=== PATIENT | male | born 1950 | race Caucasian/White ===

== ENCOUNTER → 2017-06-25 | Outpatient (CLI) | payer MEDICARE ==
[2017-06-25 12:23] LABS: Basophils % (A) 0 %; Eosinophils # (A) 0.2 k/uL (0-0.7); Eosinophils % (A) 3 %; HCT 44.4 % (39.0-53.0); HGB 14.8 gm/dL (13.0-17.5); Lymphocytes # (A) 1.8 k/uL (1.0-4.8); Lymphocytes % (A) 37 %; MCH 30.5 pg (25.0-35.0); MCHC 33.4 g/dL (31.0-37.0); MCV 91.3 fL (80.0-100.0); Mean Platelet Volume 6.4; Monocytes # (A) 0.4 k/uL (0-1.0); Monocytes % (A) 8 %; Neutrophils # (A) 2.4 k/uL (1.3-7.7); Neutrophils % (A) 49 %; Platelet Count 310 k/uL (150-450); RBC 4.86 m/uL (4.30-5.90); RDW 12.3 % (11.5-15.5); WBC 4.9 k/uL (3.8-10.6)
[2017-06-25 13:08] LABS: Prostate Specific Antigen 0.56 ng/mL (0.00-4.00)
== END | disposition home or self-care (01) ==
LOC: LABWHC1 11:58
PROVIDERS: ATTEND Physician Assistant Medical
DX: I25.10 Atherosclerotic heart disease of native coronary artery without angina pectoris (principal); Z12.5 Encounter for screening for malignant neoplasm of prostate
CPT/HCPCS: 36415; 80061; 82247; 83036; 84153; 84443; 84450; 84460; 85025

== ENCOUNTER 2020-01-22 17:16 | Emergency (ER) | payer MEDICARE ==
[2020-01-22 17:41] VITALS: BP 162/87; PULSE 67; RESP 18; TEMP 98.9
[2020-01-22] MEDS ORDERED: DIPH,PERTUS(ACELL)TETVAC-LF 0.5 ML VIAL IM ONE (17:49)
[2020-01-22] MEDS ORDERED: LIDOCAINE 1% INJ 10MG/ML (20 ML MDV) SQ STA (17:49)
--- NOTE | 2020-01-22 17:55 | ED ---
General Adult HPI - General Chief complaint: Wound/Laceration Stated complaint: Finger lac Time Seen by Provider: 01/22/20 17:42 Source: patient, RN notes reviewed Mode of arrival: ambulatory Limitations: no limitations - History of Present Illness Initial comments: 69-year-old male presents to the emergency room for a chief complaint of laceration. Patient reports that he was working and distraught when against a sharp object and cut his finger. Patient reports that i he believes are is requiring sutures. Patient is not up-to-date on tetanus. Patient denies any weakness in the finger. Denies sensation of foreign bodies.Patient has no other complaints at this time including shortness of breath, chest pain, abdominal pain, nausea or vomiting, headache, or visual changes. - Related Data Previous Rx's Medication Instructions Recorded Aspirin 325 mg PO DAILY tab 12/12/14 Clopidogrel [Plavix] 75 mg PO DAILY #30 tab 12/12/14 Metoprolol Tartrate [Lopressor] 25 mg PO DAILY #30 tab 12/12/14 Nitroglycerin Sl Tabs [Nitrostat] 0.4 mg SUBLINGUAL Q5M PRN #100 tab 12/12/14 Cephalexin [Keflex] 500 mg PO TID 5 Days #15 cap 01/22/20 Allergies Allergy/AdvReac Type Severity Reaction Status Date / Time No Known Allergies Allergy Verified 01/22/20 17:40 Review of Systems ROS Statement: Those systems with pertinent positive or pertinent negative responses have been documented in the HPI. ROS Other: All systems not noted in ROS Statement are negative. Past Medical History Past Medical History: No Reported History, Myocardial Infarction ([place]) Additional Past Medical History / Comment(s): stent to the mid-lad 12/11/14 Last Myocardial Infarction Date:: 12/11/14 History of Any Multi-Drug Resistant Organisms: None Reported Past Surgical History: Heart Catheterization With Stent, Tonsillectomy Past Anesthesia/Blood Transfusion Reactions: No Reported Reaction Date of Last Stent Placement:: 12/11/14 Past Psychological History: No Psychological Hx Reported Smoking Status: Never smoker Past Alcohol Use History: Occasional Past Drug Use History: None Reported - Past Family History Father Additional Family Medical History / Comment(s): was healthy of old age Mother Additional Family Medical History / Comment(s): no history General Exam Limitations: no limitations General appearance: alert, in no apparent distress Head exam: Present: atraumatic, normocephalic, normal inspection Eye exam: Present: normal appearance, PERRL, EOMI. Absent: scleral icterus, conjunctival injection, periorbital swelling ENT exam: Present: normal exam, mucous membranes moist Neck exam: Present: normal inspection, full ROM. Absent: tenderness, meningismus, lymphadenopathy Respiratory exam: Present: normal lung sounds bilaterally. Absent: respiratory distress, wheezes, rales, rhonchi, stridor Cardiovascular Exam: Present: regular rate, normal rhythm, normal heart sounds. Absent: systolic murmur, diastolic murmur, rubs, gallop, clicks Extremities exam: Present: normal capillary refill (Capillary refill less than 2 seconds in all digits including the right second digit.), other (Patient is a 2 cm laceration through the PIP joint dorsal aspect of the right second digit. Fu ll range of motion of the right second digit including extension at the DIP and PIP joints.) Course Vital Signs 01/22/20 17:38 Temperature 98.9 F Pulse Rate 67 Respiratory 18 Rate Blood Pressure 162/87 O2 Sat by Pulse 97 Oximetry Procedures - Laceration Laceration #1 Consent Obtained: verbal consent Indication: laceration Site: hand Size (cm): 3 Description: linear Depth: simple, single layer Anesthetic Used: lidocaine 1% Anesthesia Technique: nerve block Amount (mls): 6 Pre-repair: wound explored, irrigated extensively, deep structures intact Type of Sutures: nylon Size of Sutures: 4-0 Number of Sutures: 8 Technique: simple, interrupted Patient Tolerated Procedure: well, no complications Medical Decision Making - Medical Decision Making Patient presents for laceration of the dorsal PIP joint of the right second digit. He has full range of motion. No obvious tendon injury. Patient and declined x-ray. Wound was cleaned thoroughly with antibacterial soap and water. Laceration was thoroughly investigated, no evidence of tendon rupture. Full strength with extension of the PIP joint. Wound was repaired using 8 simple interrupted sutures. Antibacterial ointment was applied. Patient was started on Keflex given location of wound. Patient will follow up with his doctor or return here for any worsening symptoms. He'll return in 10-14 days for suture removal. Disposition Clinical Impression: Laceration Disposition: HOME SELF-CARE Condition: Good Instructions (If sedation given, give patient instructions): Laceration (ED), Care For Your Stitches (ED) Additional Instructions: Please keep the area clean. Apply antibiotic ointment twice daily. Take antibiotics as directed. You may return in 10-14 days for suture removal. However if he notices any signs of infection such as spreading or streaking redness, drainage, fever, or significant pain with bending the finger return to the emergency room. Prescriptions: Cephalexin [Keflex] 500 mg PO TID 5 Days #15 cap Is patient prescribed a controlled substance at d/c from ED?: No Referrals: Caro Santiago MD [Primary Care Provider] - 1-2 days Time of Disposition: 18:59
[2020-01-22] MEDS ORDERED: BACITRACIN OINT 1 EACH PACKET TOPICAL STA (18:56)
[2020-01-22] MEDS ORDERED: CEPHALEXIN 500MG STARTER PACK 4 CAP BTL PO STA (18:56)
== END 2020-01-22 19:09 | disposition home or self-care (01) ==
LOC: EC 17:16
DX: S61.210A Laceration without foreign body of right index finger without damage to nail, initial encounter (principal); I25.2 Old myocardial infarction; Z23 Encounter for immunization; W26.9XXA Contact with unspecified sharp object(s), initial encounter
CPT/HCPCS: 90715; 99282; 12002; 90471; J2001